=== PATIENT | female | born 1970 | race Asian ===

== ENCOUNTER 2019-08-14 14:21 | Inpatient (IN) | payer OTHER ==
[~2019-08-14] VITALS: Ht 154.9 cm; Wt 79.9 kg
[~2019-08-14 14:21] MED LIST: CEPH-442 PO; CEPH250S33 PO; LOSA25TA12 PO; OMEP20CA17 PO
[2019-08-14] MEDS ORDERED: morphine 2 MG INJ IV STA (16:01)
[2019-08-14] MEDS ORDERED: ONDANSETRON 4 MG INJ IV STA (16:01)
[2019-08-14] MEDS ORDERED: KETOROLAC 30 MG INJ IV STA (17:43)
[2019-08-14] MEDS ORDERED: MAGNESIUM HYDROXIDE 30ML CUP PO PRN (21:00)
[2019-08-14] MEDS ORDERED: ONDANSETRON 4 MG INJ IV PRN (21:00)
[2019-08-14] MEDS ORDERED: BISACODYL 10 MG SUPP PR PRN (21:00)
[2019-08-14] MEDS ORDERED: ACETAMINOPHEN 325 MG TAB PO PRN (21:00)
[2019-08-14] MEDS ORDERED: BISACODYL (EC) 5 MG TAB PO PRN (21:00)
[2019-08-14] MEDS ORDERED: NACL 0.9% 3 ML SYG IV SCH (21:00)
[2019-08-14] MEDS ORDERED: DOCUSATE SODIUM 100 MG CAP PO PRN (21:00)
[2019-08-14] MEDS ORDERED: morphine 2 MG INJ IV PRN (21:00)
[2019-08-14] MEDS ORDERED: HYDROCODONE/APAP (5/325) TAB PO PRN (21:00)
[2019-08-14 23:30] VITALS: BP 114/56; PULSE 74; RESP 18
[2019-08-14 23:39] VITALS: Ht 154.9 cm; Wt 79.9 kg
[2019-08-14] MEDS: FAMOTIDINE 20 MG INJ IV SCH (23:41)
[2019-08-14] MEDS: DEXTROSE 5%-0.9% NACL 1,000 ML IV SCH (23:41)
[2019-08-15 02:39] VITALS: BP 102/60; PULSE 67; RESP 18
[2019-08-15 03:00] VITALS: BP 155/77; PULSE 59; RESP 18
[2019-08-15] MEDS: DEXTROSE 5%-0.9% NACL 1,000 ML IV SCH ×4 (07:00→18:47)
[2019-08-15 08:21] VITALS: BP 114/54; PULSE 54; RESP 14
[2019-08-15] MEDS: FAMOTIDINE 20 MG INJ IV SCH ×2 (09:05→20:44)
[2019-08-15] MEDS ORDERED: POTASSIUM CHLORIDE (SR) 20 MEQ TAB PO STA (12:49)
[2019-08-15 15:09] VITALS: BP 121/68; PULSE 63; RESP 15
[2019-08-15 19:00] VITALS: BP 118/74; PULSE 67; RESP 18
[2019-08-16] VITALS (21 sets, daily range): BP systolic 115–170; BP diastolic 64–91; PULSE 56–76; RESP 15–26
[2019-08-16] MEDS: DEXTROSE 5%-0.9% NACL 1,000 ML IV SCH ×4 (03:00→21:58)
[2019-08-16] MEDS: FAMOTIDINE 20 MG INJ IV SCH ×2 (08:11→21:57)
[2019-08-16] MEDS ORDERED: ONDANSETRON 4 MG INJ IV PRN (18:00)
[2019-08-16] MEDS ORDERED: hydrALAzine 20 MG INJ IV PRN (18:00)
[2019-08-16] MEDS ORDERED: PROCHLORPERAZINE 10 MG INJ IV PRN (18:00)
[2019-08-16] MEDS ORDERED: MEPERIDINE 25 MG INJ IV PRN (18:00)
[2019-08-16] MEDS ORDERED: LABETALOL HCL 20MG INJ IV PRN (18:00)
[2019-08-16] MEDS ORDERED: DIPHENHYDRAMINE 50 MG INJ IV PRN (18:00)
[2019-08-16] MEDS ORDERED: FENTAnyl 50 MCG/ML VIAL IV PRN (18:00)
[2019-08-16] MEDS ORDERED: EPHEDrine 25 MG/5 ML SYG IV PRN (18:00)
[2019-08-16] MEDS ORDERED: HYDROmorphONE 1 MG/5 ML IV SYRINGE IV PRN ×3 (18:00)
[2019-08-16] MEDS ORDERED: IOHEXOL 300MG/ML 30 ML BTL ONE (18:17)
[2019-08-16] MEDS ORDERED: SEVOFLURANE 15 MIN ONE (18:30)
[2019-08-16] MEDS ORDERED: CEFAZOLIN 1 GM INJ ONE (18:30)
[2019-08-16] MEDS ORDERED: MIDAZOLAM 1 MG/ML 2 ML INJ ONE (18:37)
[2019-08-16] MEDS ORDERED: LIDOCAINE 2% (SDV) 5 ML INJ ONE (18:48)
[2019-08-16] MEDS ORDERED: PROPOFOL 20 ML ONE (18:48)
[2019-08-16] MEDS ORDERED: ONDANSETRON 4 MG INJ ONE (19:05)
[2019-08-16] MEDS ORDERED: DEXAMETHASONE 4 MG/ML 5 ML INJ ONE (19:05)
[2019-08-16] MEDS ORDERED: EPHEDrine 25 MG/5 ML SYG ONE (19:08)
[2019-08-17 02:29] VITALS: BP 112/61; PULSE 86; RESP 18
[2019-08-17 08:00] VITALS: BP 120/76; PULSE 65; RESP 16
[2019-08-17] MEDS: FAMOTIDINE 20 MG INJ IV SCH (08:10)
[2019-08-17] MEDS: DEXTROSE 5%-0.9% NACL 1,000 ML IV SCH (08:11)
== END 2019-08-17 14:20 | disposition home or self-care (01) | DRG 661 ==
LOC: E/R 14:21 → MS3 20:49
PROVIDERS: ADMIT Internal Medicine; ATTEND Internal Medicine
PROC: 0T768DZ Dilation of Right Ureter with Intraluminal Device, Via Natural or Artificial Opening Endoscopic (ICD-10-PCS; 2019-08-16)
PROC: 0TC68ZZ Extirpation of Matter from Right Ureter, Via Natural or Artificial Opening Endoscopic (ICD-10-PCS; principal; 2019-08-16 17:30)
DX: N13.2 Hydronephrosis with renal and ureteral calculous obstruction (principal); K76.0 Fatty (change of) liver, not elsewhere classified; I10 Essential (primary) hypertension
CPT/HCPCS: 36415; 71045; 74018; 74176; 74430; 76705; 76830; 76856; 80053; 81003; 81025; 83690; 83735; 84100; 85025; 85610; 85730; 87086; 88300; 96374; 96375; C2617; J0690; J1100; J2250; J2270; J2405; J3010; J7042; Q9967